=== PATIENT | male | born 1990 | race Two or more races ===

== ENCOUNTER 2019-01-14 03:24 | Emergency (ER) | payer MEDICAID, OTHER ==
[~2019-01-14] VITALS: Ht 170.2 cm; Wt 64.0 kg
--- NOTE | 2019-01-14 03:46 | NUR ---
PT BIBRA FROM ANXIETY ATTACK; PT CLAIMS S/I, SUICIDE PRECAUTIONS INITIATED FOR SAFETY, PT ON MONITOR, VSS, PENDING MD LENNON
[2019-01-14] MEDS ORDERED: LORAZEPAM 1 MG TABLET PO ONE (04:00)
[2019-01-14] MEDS ORDERED: LORAZEPAM 1 MG TABLET ONE (04:08)
[2019-01-14 04:28] LABS: BASOPHILS % (AUTO) 0.5 % (0.0-2.0); EOSINOPHILS % (AUTO) 1.2 % (0.0-6.0); HEMATOCRIT 41 % (39-51); HEMOGLOBIN 13.8 g/dL (13.5-17.5); LYMPHOCYTES # (AUTO) 2.9 /CMM (0.8-4.8); LYMPHOCYTES % (AUTO) 41.5 % (20.0-44.0); MEAN CORPUSCULAR HGB CONC 34 g/dl (31.0-36.0); MEAN CORPUSCULAR VOLUME 87 fL (80-96); MONOCYTES # (AUTO) 0.6 /CMM (0.1-1.30); MONOCYTES % (AUTO) 8.4 % (2.0-12.0); NEUTROPHILS # (AUTO) 3.4 /CMM (1.8-8.9); NEUTROPHILS % (AUTO) 48.4 % (43.0-81.0); PLATELET COUNT (AUTO) 276 /CMM (150-450); RED BLOOD CELL COUNT(AUTO) 4.73 MIL/uL (4.5-6.0)
[2019-01-14 04:36] LABS: CALCIUM, SERUM 9.4 mg/dL (8.5-10.1); CARBON DIOXIDE 31 mmol/L (21-32); CHLORIDE 107 mmol/L (98-107); CREATININE 0.8 mg/dL (0.6-1.3); GLUCOSE 117 mg/dL (74-106); POTASSIUM 3.8 mmol/L (3.5-5.1); SODIUM SERUM 148 mmol/L (136-145); UREA NITROGEN, BLOOD 15 mg/dL (7-18)
[2019-01-14 04:43] LABS: ALANINE AMINOTRANSFERASE 35 U/L (12-78); ALBUMIN 3.8 g/dL (3.4-5.0); ALCOHOL, BLOOD < 3 mg/dL (0-0); ALKALINE PHOSPHATASE 98 U/L (46-116); ASPARTATE AMINOTRANSFERASE 33 U/L (15-37); BILIRUBIN,DIRECT 0.1 mg/dL (0.0-0.2); BILIRUBIN,TOTAL 0.2 mg/dL (0.2-1.0); TOTAL PROTEIN, SERUM 7.3 g/dL (6.4-8.2)
[2019-01-14 04:46] LABS: ACETAMINOPHEN 0 ug/ml (10-30); SALICYLATE 1.1 mg/dL (2.8-20.0)
--- NOTE | 2019-01-14 04:53 | NUR ---
CALLED [facility]ACKENZIE; MESSAGE LEFT, AWAITING CALLBACK
--- NOTE | 2019-01-14 04:58 | NUR ---
RECEIVED CALLBACK, MACKENZIE WILL COME CASSANDRA
--- NOTE | 2019-01-14 06:49 | NUR ---
MACKENZIE PICKARD WITH PT. PT PENDING ACCEPTANCE AT [facility]. FAXED ALL PPW. AWAITING CALL BACK FOR INFO
--- NOTE | 2019-01-14 07:36 | NUR ---
BIRD SUAZO FROM [facility]; PT WILL NOT BE ACCEPTED D/T PT POSITIVE FOR OPIATES AND DENIES ANY ILLICIT DRUG USE
--- NOTE | 2019-01-14 07:44 | NUR ---
CALLED MACKENZIE CRISIS TEAM; PT WILL COME BACK TO SEE PT. PT WAS NOT ACCEPTED AT [facility]
[2019-01-14 09:29] VITALS: BP 126/80
--- NOTE | 2019-01-14 09:30 | NUR ---
PATIENT IN BED, ASLEEP BUT EASILY AWAKEN, NAD, VSS. WILL CONTINUE TO MONITOR.
--- NOTE | 2019-01-14 10:17 | NUR ---
CALL BACK FROM [facility],ACCEPTED AT [facility] BY DR WHITE,REPORT TO JEFFERSON CERDA AT [phone], ROOM P4, [facility] ETA 90 MINUTES
--- NOTE | 2019-01-14 10:46 | NUR ---
REPORT GIVEN TO JEFFERSON CERDA PATIENT IS GOING TO [facility].
--- NOTE | 2019-01-14 11:51 | NUR ---
Patient Tranfers to outside Facility ASAEL WAUCONDA Physician:CINDY PATIENT SLEEP BUT ABLE TO ANSWER QUESTIONS X2, NAD, BREATHING EVEN AND UNLABORED, PATIENT UNABLE TO SIGN PAPERWORKS. LEFT WITH 2EMTS VIA AMBULANCE IN STABLE CONDITION.
== END 2019-01-14 11:54 ==
LOC: ER 03:26
DX: F41.9 Anxiety disorder, unspecified (principal); F32.9 Major depressive disorder, single episode, unspecified; F11.10 Opioid abuse, uncomplicated; F15.10 Other stimulant abuse, uncomplicated; R56.9 Unspecified convulsions; R45.851 Suicidal ideations; Z04.6 Encounter for general psychiatric examination, requested by authority
CPT/HCPCS: 36415; 80048; 80076; 80305; 80307; 80329; 85025; 99285; A4606; G0480

== ENCOUNTER 2019-07-05 21:12 | Emergency (ER) | payer SELFPAY ==
[~2019-07-05] VITALS: Ht 170.2 cm; Wt 61.2 kg
[2019-07-05 21:32] VITALS: BP 129/93
== END 2019-07-05 23:21 | disposition home or self-care (01) ==
LOC: ER 21:19
DX: S40.862A Insect bite (nonvenomous) of left upper arm, initial encounter (principal); S40.861A Insect bite (nonvenomous) of right upper arm, initial encounter; S30.860A Insect bite (nonvenomous) of lower back and pelvis, initial encounter; R56.9 Unspecified convulsions; J45.909 Unspecified asthma, uncomplicated; F41.9 Anxiety disorder, unspecified; F10.10 Alcohol abuse, uncomplicated; F17.200 Nicotine dependence, unspecified, uncomplicated; Y90.9 Presence of alcohol in blood, level not specified; Z59.0 Homelessness; W57.XXXA Bitten or stung by nonvenomous insect and other nonvenomous arthropods, initial encounter; Y93.89 Activity, other specified; Y92.89 Other specified places as the place of occurrence of the external cause; Y99.8 Other external cause status

== ENCOUNTER 2019-10-09 14:43 | Emergency (ER) | payer SELFPAY ==
[~2019-10-09] VITALS: Ht 170.2 cm; Wt 54.4 kg
--- NOTE | 2019-10-09 14:55 | NUR ---
CALLLED IN WAITING ROOM. NO ANSWER.
--- NOTE | 2019-10-09 15:25 | NUR ---
PT BIB SELF C/O R HAND WOUND AND SWELLING FOR 2 DAYS, PT IS AAOX4, NOT IN RESPIRATORY DISTRESS, V/S STABLE, KEPT RESTED AND COMFORTABLE, WILL CONTINUE TO MONITOR.
--- NOTE | 2019-10-09 15:30 | NUR ---
PUMPMAN AT BEDSIDE FOR XRAY.
--- NOTE | 2019-10-09 15:30 | NUR ---
SEEN AND EXAMINED BY CHELA VILLAGRAN.
[2019-10-09] MEDS ORDERED: LORAZEPAM 1 MG TABLET ONE (15:34)
[2019-10-09] MEDS ORDERED: IBUPROFEN 400 MG TABLET ONE (15:34)
[2019-10-09] MEDS ORDERED: ACETAMINOPHEN 325 MG TABLET ONE (15:34)
[2019-10-09] MEDS ORDERED: TDAP [DIPH/PERTUSSIS/TET] 0.5 ML VIAL IM ONE (15:34)
--- NOTE | 2019-10-09 15:40 | NUR ---
VANCE SILVA AT BEDSIDE FOR EVAL.
[2019-10-09] MEDS: ACETAMINOPHEN 325 MG TABLET PO ONE (15:42)
[2019-10-09] MEDS: IBUPROFEN 400 MG TABLET PO ONE (15:42)
[2019-10-09] MEDS: TDAP [DIPH/PERTUSSIS/TET] 0.5 ML VIAL IM ONE (15:42)
[2019-10-09] MEDS: LORAZEPAM 1 MG TABLET PO ONE (15:42)
[2019-10-09] MEDS ORDERED: LIDOCAINE 1%-EPI 1:100,000 20 ML VIAL ONE (16:19)
[2019-10-09] MEDS ORDERED: CEPHALEXIN MONOHYDRATE 500 MG CAPSULE PO ONE (16:20)
[2019-10-09] MEDS: CEPHALEXIN MONOHYDRATE 500 MG CAPSULE PO ONE (16:22)
[2019-10-09] MEDS: LIDOCAINE 1%-EPI 1:100,000 20 ML VIAL TP ONE (16:23)
--- NOTE | 2019-10-09 16:31 | NUR ---
XRAY AT BEDSIDE
--- NOTE | 2019-10-09 17:00 | NUR ---
Social work consult requested by ER for substance use. Pt is a 29 year old transgendered female who was admitted to [facility] ER for hand injury. Pt was resting in her bed and was oriented x 4 (person, place, time, situation). Per pt, she is not homeless and currently is staying with roommates at [id number] [place] [address] [id number]; [phone]. Pts next of kin and person to notify is her father, Toni Anne [[phone]] who lives in [place]. Pt states she is originally from [place] and came to [place] in March 2018 to enter a rehabilitation center in [facility]. 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 Pt also uses alcohol and cigarettes. Pt is very motivated to change and asked support in entering a substance abuse treatment program. RICARDO referred pt to [facility] Detox program [[id number] [place] [address]; [id number]]. RICARDO has faxed referral clinicals to [phone], attention: Hospital Navigation Department. RICARDO spoke with Jodie, intake bulk plant operator at [facility], who states that pt can be admitted to their detox program as soon as clinicals are reviewed. Per Jodie, once pt is cleared by the Hospital Navigation department, pt will be contacted for an intake at their facility. RICARDO has informed pt and pt is motivated to change drug use behavior and enter the detox treatment program. No other child protective services social worker needed at this time. RICARDO is available if needed.
[2019-10-09] MEDS ORDERED: AZITHROMYCIN 250 MG TABLET ONE (18:17)
[2019-10-09] MEDS ORDERED: CEFTRIAXONE 500 MG VIAL ONE (18:17)
[2019-10-09] MEDS ORDERED: LIDOCAINE /MPF 1% VIAL 5 ML VIAL ONE (18:18)
[2019-10-09] MEDS: AZITHROMYCIN 250 MG TABLET PO ONE (18:26)
[2019-10-09] MEDS: CEFTRIAXONE 500 MG VIAL IM ONE (18:26)
--- NOTE | 2019-10-09 18:51 | NUR ---
FOOD TRAY PROVIDED
[2019-10-09 18:52] VITALS: BP 126/77
--- NOTE | 2019-10-09 18:56 | NUR ---
PAGED [facility]. ONLY BEDS THEY HAVE AVAILABLE IS OB AND PEDS.
--- NOTE | 2019-10-09 19:06 | NUR ---
CALLED [facility] AND ADVISED TO [place] [facility].
--- NOTE | 2019-10-09 19:09 | NUR ---
PT REFUSE IV INSERTION FOR NOW. AWARE.
[2019-10-09] MEDS: NICOTINE PATCH (7MG) 7 MG PATCH.TD24 TD SCH (19:15)
--- NOTE | 2019-10-09 19:15 | NUR ---
REPORT GIVEN TO PRASHANT STANTON FOR [facility].
--- NOTE | 2019-10-09 19:20 | NUR ---
URINE SPECIMEN COLLECTED AND SENT TO LAB.
--- NOTE | 2019-10-09 19:26 | NUR ---
[facility] ARE AT [facility]AC[facility]. ONLY TYPES OF PTS ACCEPTING IS PEDS AND OB. [facility]
--- NOTE | 2019-10-09 19:28 | NUR ---
CALLED [facility] AND THEY DO NOT HAVE ANY AVAILABLE.
--- NOTE | 2019-10-09 19:31 | NUR ---
CALLED [facility] THEY HAVE NO HAND SURGERY ON [facility].
[2019-10-09 19:44] LABS: BASOPHILS % (AUTO) 0.7 % (0.0-2.0); EOSINOPHILS % (AUTO) 3.6 % (0.0-6.0); HEMATOCRIT 38 % (39-51); HEMOGLOBIN 12.5 g/dL (13.5-17.5); LYMPHOCYTES # (AUTO) 3.7 /CMM (0.8-4.8); LYMPHOCYTES % (AUTO) 61.3 % (20.0-44.0); MEAN CORPUSCULAR HGB CONC 33 g/dl (31.0-36.0); MEAN CORPUSCULAR VOLUME 81 fL (80-96); MONOCYTES # (AUTO) 0.7 /CMM (0.1-1.30); MONOCYTES % (AUTO) 11.6 % (2.0-12.0); NEUTROPHILS # (AUTO) 1.4 /CMM (1.8-8.9); NEUTROPHILS % (AUTO) 22.8 % (43.0-81.0); PLATELET COUNT (AUTO) 309 /CMM (150-450); RED BLOOD CELL COUNT(AUTO) 4.65 MIL/uL (4.5-6.0)
[2019-10-09 20:25] LABS: CALCIUM, SERUM 8.8 mg/dL (8.5-10.1); POTASSIUM 4.1 mmol/L (3.5-5.1)
--- NOTE | 2019-10-09 20:30 | NUR ---
Patient does not wish to proceed with medical care recommended by Lizet VILLAGRAN . Patient given information related to possible complications, up to and including , which could occur as a result of leaving the hospital at this time. Patient verbalizes understanding of risks involved due to leaving against medical advice. Patient has signed AMA form.
[2019-10-09 20:33] LABS: ALBUMIN 3.6 g/dL (3.4-5.0); BILIRUBIN,TOTAL 0.3 mg/dL (0.2-1.0); TOTAL PROTEIN, SERUM 7.5 g/dL (6.4-8.2)
[2019-10-10 08:06] LABS: HIV SCRN 4G wRFX Non Reactive (Non Reactive)
== END 2019-10-09 20:31 | disposition left against medical advice (07) ==
LOC: ER 14:46
DX: S61.421A Laceration with foreign body of right hand, initial encounter (principal); F17.200 Nicotine dependence, unspecified, uncomplicated; F11.10 Opioid abuse, uncomplicated; F41.9 Anxiety disorder, unspecified; L30.9 Dermatitis, unspecified; R45.1 Restlessness and agitation; J45.909 Unspecified asthma, uncomplicated; Z86.19 Personal history of other infectious and parasitic diseases; W25.XXXA Contact with sharp glass, initial encounter; Y93.89 Activity, other specified; Y92.89 Other specified places as the place of occurrence of the external cause; Y99.8 Other external cause status
CPT/HCPCS: 12041; 36415; 73130 ×2; 80048; 80076; 85025; 85730; 87389; 87491; 87591; 90471; 90715; 96372; 99284; 99406; A4217; A6403; J0696; J3490 ×2